=== PATIENT | female | born 1975 | race Caucasian/White ===

== ENCOUNTER 2023-01-09 20:19 | Emergency (ER) | payer SELFPAY ==
[~2023-01-09] VITALS: Ht 160 cm; Wt 72.6 kg
[~2023-01-09 20:19] MED LIST: HYDROCODONE BIT1 T11 PO; LIDEX0.05% T; MEDROL DOSEPAK4 MG PO; PENICILLIN VK500 MG PO; ZOFRAN ODT4 MG SL
[2023-01-09 20:29] VITALS: BP 147/87
== END 2023-01-09 21:29 | disposition home or self-care (01) ==
LOC: ED 20:19
DX: S61.216A Laceration without foreign body of right little finger without damage to nail, initial encounter (principal); Z91.018 Allergy to other foods; Z98.51 Tubal ligation status; Z90.49 Acquired absence of other specified parts of digestive tract; W25.XXXA Contact with sharp glass, initial encounter; Y93.G1 Activity, food preparation and clean up; Y92.009 Unspecified place in unspecified non-institutional (private) residence as the place of occurrence of the external cause; Y99.8 Other external cause status

== ENCOUNTER 2025-01-31 10:34 | Emergency (ER) | payer SELFPAY ==
[~2025-01-31] VITALS: Ht 160 cm; Wt 74.8 kg
[2025-01-31 10:41] VITALS: BP 155/64
[2025-01-31 11:15] LABS: BASO # 0.1 10*3/uL (0.0-0.1); BASO % 1.5 % (0.0-1.0); EOS # 0.2 10*3/uL (0.0-0.4); EOS % 2.7 % (1.0-4.0); MEAN CELL VOLUME 75.5 fl (81.0-99.0); MEAN CORPUSCULAR HGB 22.6 pg (27.0-31.0); MEAN PLATELET VOLUME 9.7 fl (9.6-12.3); MONO # 0.6 10*3/uL (0.1-1.0); MONO % 8.1 % (3.0-9.0); NEUT # 5.0 10*3/uL (2.3-7.9); NEUT % 67.2 % (47.0-73.0); NUCLEATED RED BLOOD CELL 0.0 % (0.0-0.0); NUCLEATED RED BLOOD CELL 0.0 10*3/uL (0.0-0.0); PLATELET COUNT AUTOMATED 417 10*3/uL (130-400); RED CELL DISTRI WIDTH 19.2 % (0-14.5)
[2025-01-31 11:33] LABS: BUN 13 mg/dl (9-23)
[2025-01-31] MEDS ORDERED: PREDNISONE50 MG PO (12:56)
== END 2025-01-31 13:12 | disposition home or self-care (01) ==
LOC: ED 10:34
PROVIDERS: Nurse Practitioner Family
DX: M79.601 Pain in right arm (principal); R07.2 Precordial pain; Z79.899 Other long term (current) drug therapy; Z90.49 Acquired absence of other specified parts of digestive tract; Z98.51 Tubal ligation status